=== PATIENT | female | born 1945 | race Caucasian/White ===

== ENCOUNTER 2017-02-08 05:06 | Emergency (ER) | payer OTHER ==
[2017-02-08 05:16] VITALS: BP 164/88; BMI 29.7
[2017-02-08] MEDS ORDERED: MORPHINE SULFATE INJ 4 MG IVP ONE (05:29)
[2017-02-08] MEDS ORDERED: TORADOL 30 MG VIAL IVP ONE (05:30)
[2017-02-08] MEDS ORDERED: NS 1000 ML 1,000 ML ONE (05:32)
[2017-02-08] MEDS ORDERED: MORPHINE SULFATE INJ 4 MG ONE (05:32)
--- NOTE | 2017-02-08 05:32 | DR.GENAD ---
HPI - PCP Primary Care Physician: NIETO - Complaint/Symptoms Chief Complaint Doctors Comments: Patient admits to a history of nephrolithiasis. Denies fever, or vomiting. Pain is 10/10, sharp, onset two days ago worse today, not aggravated by motion. Chief Complaint:: LOWER LEFT ABD PAIN LEFT FLANK PAIN ONSET 2 DAYS AGO WORSE THIS AM, Self Treatment fo Chief Complaint: PERCOCET NO RELIEF - Source History Provided: Patient - Mode of Arrival Mode of Arrival: Ambulatory - Timing Onset of Chief Complaint: 02/06/17 PMH - PMH Past Medical History: Yes Past Medical History: Arthritis, Dyslipidemia, GERD, Hypertension Past Surgical History: Yes Surgical History: Cholecystectomy, Hysterectomy, Tonsillectomy, Other - Family History History of Family Medical Conditions: No - Social History Does patient currently use any type of tobacco product: No Have you used tobacco products in the last 12 months: No Type of Tobacco Use: None Does any household member use tobacco: No Alcohol Use: None Do you use any recreational Drugs:: No Lives With: Spouse Lives Where: Home - infectious screening In the last 2 months have you had wt loss of >10#?: NO Have you had fever, night sweats or hemotysis?: No Have you traveled outside the country in the last 6 months?: No Isolation: Standard ROS - Review of Systems Eyes: No Symptoms Reported ENTM: No Symptoms Reported Respiratoy: No Symptoms Reported Cardiovascular: No Symptoms Reported Gastrointestinal/Abdominal: No Symptoms Reported Genitourinary: No Symptoms Reported Neurological: No Symptoms Reported Musculoskeletal: No Symptoms Reported Integumentary: No Symptoms Reported Hematologic/Lymphatic: No Symptoms Reported Endocrine: No Symptoms Reported Psychiatric: No Symptoms Reported All Other Systems: Reviewed and Negative PE - Vital Signs Vitals: Temperature 98.2 F Pulse Rate 90 Respiratory Rate 18 Blood Pressure [Right Arm] 134/65 Blood Pressure 164/88 O2 Sat by Pulse Oximetry 99 - General Limitations: No Limitations General Appearance: Alert, In No Apparent Distress - Head Head Exam: Normal Inspection, Atraumatic - Eyes Eye exam: Normal Appearance, PERRL, EOMI - ENT ENT Exam: Normal Exam External Ear Exam: Normal External Inspection TM/Canal Exam: Bilateral Normal Nose Exam: Normal Nose Exam Mouth Exam: Normal Inspection Throat Exam: Normal Inspection - Neck Neck Exam: Normal Inspection, Full ROM - Chest Chest Inspection: Normal Inspection - Respiratory Respiratory Exam: Normal Lung Sounds Bilat Respiratory Exam: Bilateral Clear to Auscultation - Cardiovascular Cardiovascular Exam: Regular Rate, Normal Rhythm - Abdominal Exam Abdominal Exam: Normal Inspection, Normal Bowel Sounds Abdominal Tenderness: LLQ - Extremities Extremities Exam: Normal Inspection - Back Back Exam: (L) CVA Tenderness - Neurologic Neurological Exam: Alert, Oriented X3, CN II-XII Intact - Psychiatric Psychiatric Exam: Normal Affect - Skin Skin Exam: Warm, Dry Course - Reevaluation 1st: Improved (0600, pain level 4) ROR - Labs Reviewed Result Diagrams: 02/08/17 05:20 02/08/17 05:20 Laboratory: WBC 18.4 X10^3/uL (3.6-10.0) H 02/08/17 05:20 RBC 4.95 X10^6/uL (3.5-5.4) 02/08/17 05:20 Hgb 11.4 g/dL (12.0-16.0) L 02/08/17 05:20 Hct 36.0 % (36.0-47.0) 02/08/17 05:20 MCV 72.7 fL (80.0-100.0) L 02/08/17 05:20 MCH 23.0 pg (27.0-34.0) L 02/08/17 05:20 MCHC 31.7 g/dL (33.0-35.0) L 02/08/17 05:20 RDW 14.9 % (11.6-16.5) 02/08/17 05:20 Plt Count 210 X10^3/uL (150.0-450.0) 02/08/17 05:20 Plt Count Comment Adequate (ADEQUATE) 02/08/17 05:20 MPV 9.1 fL (7.4-11.0) 02/08/17 05:20 Neut % 89.2 % (42.0-75.0) H 02/08/17 05:20 Lymph % 6.6 % (21.0-51.0) L 02/08/17 05:20 Wilkin % 3.5 % (0.0-13.0) 02/08/17 05:20 Eos % 0.1 % (0.9-2.9) L 02/08/17 05:20 Baso % 0.6 % (0.2-1.0) 02/08/17 05:20 Neut # 16.4 x10^3/uL (2.2-4.8) H 02/08/17 05:20 Lymph # 1.2 X10^3/uL (1.3-2.9) L 02/08/17 05:20 Wilkin # 0.7 x10^3/uL (0.3-0.8) 02/08/17 05:20 Eos # 0.0 x10^3/uL (0.0-0.2) 02/08/17 05:20 Baso # 0.1 X10^3/uL (0.0-0.1) 02/08/17 05:20 Absolute Nucleated RBC 0.0 /100WBC 02/08/17 05:20 Plt Morphology Comment Normal (NORMAL) 02/08/17 05:20 RBC Morphology Abnormal (NORMAL) A 02/08/17 05:20 Hypochromasia Slight A 02/08/17 05:20 Microcytosis Slight A 02/08/17 05:20 Sodium 138 mmol/L (136-145) 02/08/17 05:20 Corrected Sodium 140 mmol/L (136-145) 02/08/17 05:20 Potassium 3.4 mmol/L (3.5-5.1) L 02/08/17 05:20 Chloride 101 mmol/L (98-107) 02/08/17 05:20 Carbon Dioxide 25.4 mmol/L (21-32) 02/08/17 05:20 BUN 15 mg/dL (7-18) 02/08/17 05:20 Creatinine 1.04 mg/dL (0.55-1.02) H 02/08/17 05:20 Est GFR (MDRD) Af Amer > 60 (>60) 02/08/17 05:20 Est GFR (MDRD) Non-Af 56 (>60) L 02/08/17 05:20 Glucose 175 mg/dL (65-99) H 02/08/17 05:20 Calcium 9.1 mg/dL (8.5-10.1) 02/08/17 05:20 Corrected Calcium TNP 02/08/17 05:20 Total Bilirubin 0.50 mg/dL (0.2-1.0) 02/08/17 05:20 AST 14 Units/L (15-37) L 02/08/17 05:20 ALT 23 Units/L (12-78) 02/08/17 05:20 Alkaline Phosphatase 83 Units/L (46-116) 02/08/17 05:20 Total Protein 8.2 g/dL (6.4-8.2) 02/08/17 05:20 Albumin 4.1 g/dL (3.4-5.0) 02/08/17 05:20 Globulin 4.1 g/dL (2.5-4.5) 02/08/17 05:20 Albumin/Globulin Ratio 1.0 Ratio (1.1-2.1) L 02/08/17 05:20 Specimen Type Clean catch urine 02/08/17 05:29 Urine Color Pale yellow (YELLOW) 02/08/17 05:29 Urine Appearance Clear (CLEAR) 02/08/17 05:29 Urine pH 7.0 (5.0 - 8.0) 02/08/17 05:29 Ur Specific Huntly 1.010 (1.000-1.030) 02/08/17 05:29 Urine Protein 1+ (NEGATIVE) 02/08/17 05:29 Urine Glucose (UA) 3+ (NEGATIVE) 02/08/17 05:29 Urine Ketones 1+ (NEGATIVE) 02/08/17 05:29 Urine Occult Blood 4+ (NEGATIVE) 02/08/17 05:29 Urine Nitrite Negative (NEGATIVE) 02/08/17 05:29 Urine Bilirubin Negative (NEGATIVE) 02/08/17 05:29 Urine Urobilinogen Normal (NORMAL) 02/08/17 05:29 Ur Leukocyte Esterase Negative (NEGATIVE) 02/08/17 05:29 Urine RBC 0-3 /HPF (NEGATIVE) 02/08/17 05:29 Urine WBC 0-3 /HPF (NEGATIVE) 02/08/17 05:29 Ur Squamous Epith Cells Rare /HPF (NEGATIVE) 02/08/17 05:29 Urine Bacteria Negative /HPF (NEGATIVE) 02/08/17 05:29 Ur Culture Indicated? No/not indicated 02/08/17 05:29 - XRAY XRAY Interpreted by: Radiologist (CT Abd/pel: There is a 4mm nonobstructing right lower pole renal calculus present. No right ureteral calculus is identified. There is marked left sided hydronep;hrosis proximal to a 1.2cm calculus located at or near the ureteropelvic junction. There are several other l to 2 mm nonobstructing left renal calculi present. There is extensive perinephric stranding and some periureteral stranding proximally likely related to the obstruction and perhaps a ruptured fornix....) - Diagnosis Discharge Problem: Obstruction of left ureteropelvic junction (UPJ) - Discharge Plan Condition: Stable - Follow ups/Referrals Follow ups/Referrals: RAQUEL NIETO [Primary Care Provider] - 3 days - Instructions
[2017-02-08] MEDS ORDERED: TORADOL 30 MG VIAL ONE (05:42)
[2017-02-08] MEDS ORDERED: ZOFRAN INJ 4 MG VIAL IVP ONE (05:42)
[2017-02-08] MEDS ORDERED: ZOFRAN INJ 4 MG VIAL ONE (05:45)
[2017-02-08 05:46] LABS: BILIRUBIN,URINE NEGATIVE (NEGATIVE); BLOOD/HEMOGLOBIN,URINE 4+ (NEGATIVE); GLUCOSE, URINE 3+ (NEGATIVE); KETONES,URINE 1+ (NEGATIVE); LEUKOCYTE ESTERASE ,URINE NEGATIVE (NEGATIVE); NITRITES,URINE NEGATIVE (NEGATIVE); PROTEIN,URINE 1+ (NEGATIVE); UROBILINOGEN,URINE NORMAL (NORMAL)
[2017-02-08 05:52] LABS: APPEARANCE,URINE CLEAR (CLEAR); COLOR,URINE PALE YELLOW (YELLOW)
[2017-02-08 05:53] LABS: BACTERIA,URINE NEGATIVE /HPF (NEGATIVE); RBC,URINE 0-3 /HPF (NEGATIVE); SQUAMOUS EPITHELIAL CELL,UR RARE /HPF (NEGATIVE)
[2017-02-08] MEDS ORDERED: MORPHINE SULFATE INJ 2 MG INJ IVP ONE (05:59)
[2017-02-08] MEDS ORDERED: MORPHINE SULFATE INJ 2 MG INJ ONE (06:00)
[2017-02-08] MEDS ORDERED: NS 1000 ML 1,000 ML IV SCH (06:00)
[2017-02-08 06:16] LABS: BASOPHILS # (AUTO) 0.1 X10^3/uL (0.0-0.1); BASOPHILS % (AUTO) 0.6 % (0.2-1.0); EOSINOPHILS % (AUTO) 0.1 % (0.9-2.9); HEMOGLOBIN 11.4 g/dL (12.0-16.0); LYMPHOCYTES # (AUTO) 1.2 X10^3/uL (1.3-2.9); LYMPHOCYTES % (AUTO) 6.6 % (21.0-51.0); MEAN CORPUSCULAR HGB CONC 31.7 g/dL (33.0-35.0); MEAN CORPUSCULAR VOLUME 72.7 fL (80.0-100.0); MEAN PLATELET VOLUME 9.1 fL (7.4-11.0); MONOCYTES # (AUTO) 0.7 x10^3/uL (0.3-0.8); MONOCYTES % (AUTO) 3.5 % (0.0-13.0); NEUTROPHILS # (AUTO) 16.4 x10^3/uL (2.2-4.8); NEUTROPHILS % (AUTO) 89.2 % (42.0-75.0); PLATELET COUNT 210 X10^3/uL (150.0-450.0); RED BLOOD COUNT 4.95 X10^6/uL (3.5-5.4); RED CELL DISTRIBUTION WIDTH 14.9 % (11.6-16.5); WHITE BLOOD COUNT 18.4 X10^3/uL (3.6-10.0)
[2017-02-08 06:26] LABS: ALANINE AMINOTRANSFERASE 23 Units/L (12-78); ALBUMIN 4.1 g/dL (3.4-5.0); ALKALINE PHOSPHATASE 83 Units/L (46-116); ASPARTATE AMINO TRANSFERASE 14 Units/L (15-37); BLOOD UREA NITROGEN 15 mg/dL (7-18); CALCIUM 9.1 mg/dL (8.5-10.1); CARBON DIOXIDE 25.4 mmol/L (21-32); CHLORIDE 101 mmol/L (98-107); COR NA(FOR HYPERGLY) 140 mmol/L (136-145); CREATININE 1.04 mg/dL (0.55-1.02); SODIUM 138 mmol/L (136-145); TOTAL PROTEIN 8.2 g/dL (6.4-8.2); eGFR BLACK RACES > 60 (>60); eGFR NON BLACK RACES 56 (>60)
[2017-02-08 06:42] LABS: PLATELET MORPHOLOGY COMMENT NORMAL (NORMAL)
[2017-02-08 06:43] LABS: HYPOCHROMASIA SLIGHT; MICROCYTOSIS SLIGHT
--- NOTE | 2017-02-08 07:15 | CT ---
HISTORY: Left flank pain hematuria Study: CT abdomen pelvis without contrast Comparison: None Technique: Axial non contrast images with coronal and sagittal reformats. Dose reduction procedures w ere used with MA/kv adjusted for body size. Findings: The lung bases are clear. There is a large hiatal hernia present. The liver, spleen, adrenal glands, and pancreas are within normal limits to the limitations of an unenhanced examination. The patient is status post cholecystectomy. The right kidney is unobstructed. There is a 4 millimeter nonobstructin g right lower pole renal calculus present. No right ureteral calculus is identified. There is marked left-sided hydronephrosis proximal to a 1.2 centimeter calculus located at or near the ureteropelvic junction. There are several other 1 to 2 millimeter nonobstructing left renal calculi present. There is extensive perinephric stranding and some periureteral stranding proximally likely related to the o bstruction and perhaps a ruptured fornix. The appendix is normal. Calcific atherosclerotic changes pr esent in a nondilated abdominal aorta. No intraperitoneal or retroperitoneal lymphadenopathy is ident ified. There are no findings suggestive of diverticulitis or colitis. Examination of the pelvis demon strated no evidence for pelvic masses, pelvic fluid, or pelvic lymphadenopathy. No lytic or blastic s keletal lesions are identified. IMPRESSION: 1.2 centimeter obstructing calculus at or near the left ureteropelvic junction Extensive perinephric stranding on the left likely related to the obstruction and possibly forniceal rupture Multiple bilateral nonobstructing renal calculi Reported By:
== END 2017-02-08 07:57 | disposition home or self-care (01) ==
LOC: ER 05:06
DX: N13.0 Hydronephrosis with ureteropelvic junction obstruction (principal)
CPT/HCPCS: 36415; 74176; 80053; 81001; 85025; 96365; 96367; 96374; 96375; 99283; A4222; J1885; J2270; J2405

== ENCOUNTER → 2017-05-15 | Outpatient (CLI) | payer OTHER | LOC: LAB 09:18 | PROVIDERS: ATTEND Obstetrics & Gynecology Obstetrics | DX: D50.0 Iron deficiency anemia secondary to blood loss (chronic) (principal); R19.5 Other fecal abnormalities; D64.89 Other specified anemias | CPT/HCPCS: 82270 ==

== ENCOUNTER 2017-08-23 08:24 | Day surgery (SDC) | payer OTHER ==
[2017-08-23] MEDS ORDERED: D5 LR 1000 ML 1,000 ML IV ONE (08:42)
[2017-08-23] MEDS ORDERED: DIPRIVAN VIAL 20 ML ONE (10:48)
[2017-08-23 13:39] VITALS: BP 145/74
== END 2017-08-23 11:25 | disposition home or self-care (01) ==
LOC: SURG1 08:24
PROVIDERS: ATTEND Internal Medicine Gastroenterology
PROC: 0DB58ZX Excision of Esophagus, Via Natural or Artificial Opening Endoscopic, Diagnostic (ICD-10-PCS; principal; 2017-08-23 09:30)
PROC: 0DB68ZX Excision of Stomach, Via Natural or Artificial Opening Endoscopic, Diagnostic (ICD-10-PCS; principal; 2017-08-23 09:30)
PROC: 0DJ08ZZ Inspection of Upper Intestinal Tract, Via Natural or Artificial Opening Endoscopic (ICD-10-PCS; principal; 2017-08-23 09:30)
DX: R10.13 Epigastric pain (principal); K92.2 Gastrointestinal hemorrhage, unspecified; D50.8 Other iron deficiency anemias; K21.9 Gastro-esophageal reflux disease without esophagitis; K22.8 Other specified diseases of esophagus; K44.9 Diaphragmatic hernia without obstruction or gangrene; K25.9 Gastric ulcer, unspecified as acute or chronic, without hemorrhage or perforation; K29.60 Other gastritis without bleeding; Z87.19 Personal history of other diseases of the digestive system; Z87.11 Personal history of peptic ulcer disease
CPT/HCPCS: 99100; A4217; J3490; J7120